=== PATIENT | male | born 1945 | race Caucasian/White ===

== ENCOUNTER 2022-07-25 10:39 | Day surgery (SDC) | payer OTHER ==
[2022-07-25] MEDS ORDERED: Ringers Lactate 1,000 ML IV ONE (11:11)
[2022-07-25] MEDS ORDERED: CEFAZOLIN SODIUM 2 GM/VIAL ONE (11:11)
[2022-07-25 12:31] LABS: Potassium 4.4 mEq/L (3.5-5.1)
[2022-07-25] MEDS ORDERED: BUPIVACAINE 0.25% PF 10 ML VIAL ONE (13:29)
[2022-07-25] MEDS ORDERED: LIDOCAINE HCL/EPINEPHRINE 20 ML MDV ONE (13:29)
[2022-07-25] MEDS ORDERED: FENTANYL CITR 100 MCG/2 ML ONE (13:56)
[2022-07-25] MEDS ORDERED: LIDOCAINE 2% MPF 5 ML VIAL ONE (13:57)
[2022-07-25] MEDS ORDERED: propofoL 200 MG/20 ML VIAL IV ONE (13:57)
[2022-07-25] MEDS ORDERED: MIDAZOLAM HCL 2 MG/2 ML INJ ONE (13:57)
[2022-07-25] MEDS ORDERED: ONDANSETRON 4 MG/2 ML VIAL ONE (13:57)
--- NOTE | 2022-07-25 14:15 | EKG ---
Test Date: 2022-07-25 Test Time: 11:00:10 [place] Clothier: KRISTY MEASUREMENT RESULTS: Intervals: Rate: 77 TX: 156 QRSD: 80 QT: 364 QTc: 411 [place]: P: 49 TX: 156 QRS: 65 T: 69 INTERPRETIVE STATEMENTS: Normal sinus rhythm with sinus arrhythmia Normal ECG No previous ECG available for comparison Electronically Signed On 07-25-22 14:14:59 CDT by Ean Zambrano
[2022-07-25] MEDS ORDERED: EPHEDRINE SULF 50 MG/ML VIAL ONE (14:25)
[2022-07-25] MEDS ORDERED: BUPIVACAINE 0.25% PF 30 ML VIAL ONE (14:35)
--- NOTE | 2022-07-25 14:43 | P.OP ---
Preoperative diagnosis: RIGHT Shoulder Blade Infected Ruptured Epidermal Cyst Postoperative diagnosis: RIGHT Shoulder Blade Infected Ruptured Epidermal Cyst Primary procedure: Wide Excision of RIGHT Shoulder Blade Infected Ruptured Epidermal Cyst Anesthesia: GETA + Local Estimated blood loss: <5cc Specimen: Cultures, Debridement Tissue Findings: 9cm x 5cm down to fascia overlying muscle epidermal cyst Complications: None Transferred to: Recovery Room Condition: Good
[2022-07-25 15:05] VITALS: O2SAT 100
[2022-07-25 16:27] VITALS: BP 118/70; TEMP 96.6
--- NOTE | 2022-07-25 21:01 | OP ---
Date of Procedure: 07/25/2022 Surgeon: Damon Heart MD, Preoperative Diagnosis: Right shoulder blade infected ruptured epidermal cyst. Postoperative Diagnosis: Right shoulder blade infected ruptured epidermal cyst. Procedure Performed: A wide local excision of right shoulder blade infected ruptured epidermal inclu andrew cyst. Anesthesia: General endotracheal plus local with 0.25% Marcaine. Estimated Blood Loss: Less than 5 cc. Specimen: Culture sent for both aerobic and anaerobic speciation and debridement tissue. Findings: Approximately 9 cm x 5 cm infected epidermal inclusion cyst extending down to the fascia o verlying the muscle, consistent with epidermal inclusion cyst. Complications: None. The patient was transferred to recovery room in good condition. Procedure In Detail: After informed consent was obtained, the patient was brought to the operating r oom and prepped and draped in the usual sterile fashion. After adequate anesthesia was achieved, I m kaylah a curvilinear incision around an area of obvious drainage of abscess material through multiple ho les in the skin consistent with a ruptured epidermal inclusion cyst. I made an elliptical incision w ith a 15 blade down to subcutaneous tissues and then used electrocautery to dissect out an area of ob vious abscess infected epidermal inclusion cyst of approximately 9 cm x 5 cm down to the fascia overl ethan muscle. Tissue was removed at this point and sent off for pathologic examination. I then copio usly irrigated the area. Culture was sent for both aerobic and anaerobic speciation of the abscess m aterial. The area was copiously irrigated and hemostasis achieved with electrocautery. After this w as completed, I partially imbricated and closed the lateral aspect of the wound without tension with interrupted 2-0 nylon sutures; however, the middle portion had too much tension and as such I left th is open and packed with Vashe-soaked Kerlix. A sterile dressing was placed over top. The patient to lerated the procedure without evidence of any complication and was transferred to PACU in good condit ion. All counts were correct at the end of the case. TK/MODL Voice ID: [id number] Report ID: [id number]
== END 2022-07-25 16:18 | disposition home or self-care (01) ==
LOC: OR 10:39
PROVIDERS: ATTEND Surgery
PROC: 0JBD0ZZ Excision of Right Upper Arm Subcutaneous Tissue and Fascia, Open Approach (ICD-10-PCS; principal; 2022-07-25 14:15)
DX: L72.0 Epidermal cyst (principal)
CPT/HCPCS: 11406; 93005; 87070; 80048; 36415; 87205; 88304; 87075; J2704; J2001; J2250; J3010; J2405; J7120